=== PATIENT | female | born 1950 | race Caucasian/White ===

== ENCOUNTER 2017-05-01 19:32 | Emergency (ER) | payer MEDICARE, SELFPAY ==
[2017-05-01 19:37] VITALS: BP 172/106; PULSE 104; RESP 20; TEMP 36.9; O2SAT 98; BMI 30.7
--- NOTE | 2017-05-01 19:49 | XR_ITS ---
XR chest 2V HISTORY: ITS.REASON: COUGH ORDERING PHYSICIAN: Abran Freire MD PATIENT AGE: 66 years COMPARISON: 02/26/2017 FINDINGS: The cardiomediastinal silhouette and pulmonary vascularity are within normal limits. Atelectasis or fibrosis once again noted within the lingula unchanged. The remaining lungs are clear. There is chronic coarsening of the bronchovascular markings consistent with chronic bronchitis. A nodular opacity is noted in the right upper lobe at 7 mm not apparent on the previous exam. Postsurgical changes left shoulder. IMPRESSION: 1. No change atelectasis or fibrosis within the lingula. Previously described density in the right infrahilar region likely due to vascular overlap. 2. Coarsened bronchovascular markings consistent with obstructive chronic bronchitis/peribronchial inflammatory change. 3. 7 mm right upper lobe nodular opacity possibly due to summation density. Consider follow-up for confirmation.
[2017-05-01 20:10] LABS: Basophils # 0.1 K/mm3 (0-0.2); Basophils % 0.4 % (0.1-2.0); Eosinophils # 0.2 K/mm3 (0.0-0.4); Hematocrit 43.7 % (37.0-47.0); Hemoglobin 14.7 g/dL (12.2-16.2); Lymphocytes # 3.5 K/mm3 (0.7-4.5); Lymphocytes % 23.7 K/mm3 (10-50); Mean Corpuscular HGB Conc 33.6 g/dL (31.8-35.4); Mean Corpuscular Hemoglobin 30.2 pg (27.0-31.2); Mean Corpuscular Volume 89.9 fl (81-99); Mean Platelet Volume 8.4 fl (7.4-10.4); Monocytes # 0.6 K/mm3 (0.1-1.0); Monocytes % 3.9 % (1.7-9.3); Neutrophils # 10.4 K/mm3 (1.8-7.8); Platelet Count 273 K/mm3 (142-424); Red Blood Count 4.86 M/mm3 (4.20-5.40); Red Cell Distribution Width 13.8 % (11.5-17.5); White Blood Count 14.6 K/mm3 (4.8-10.8)
[2017-05-01 20:16] LABS: Microscopic, Urine URINE MICROSCOPIC (MICROSCOPIC)
[2017-05-01 20:18] LABS: Strep Scrn Group A (Rapid) Negative (Negative)
[2017-05-01 20:26] LABS: Alanine Aminotransferase 20 U/L (12-78); Albumin Level 3.8 gm/dL (3.4-5.0); Albumin/Globulin Ratio 1.1 (1.1-1.8); Alkaline Phosphatase 77 U/L (46-116); Anion Gap 11.3 mEq/L (5-15); Aspartate Amino Transferase 22 U/L (15-37); Bilirubin,Total 0.4 mg/dL (0.2-1.0); Blood Urea Nitrogen 14 mg/dL (7-18); Calcium 9.3 mg/dL (8.5-10.1); Carbon Dioxide 30 mmol/L (21.0-32.0); Chloride 101 mmol/L (98-107); Creatinine Clearance Estimated 73 mL/min (0-300); Creatinine,Serum 1.03 mg/dL (0.55-1.02); Estimated Glomerular Filt Rate 54 ml/min (>60); GFR (African American) 65 ML/MIN (>60); Globulin 3.5 gm/dl (1.3-3.2); Glucose 122 mg/dL (74-106); Potassium 3.3 mmoL/L (3.5-5.1); Sodium 139 mmol/L (136-145); Total Protein,Serum 7.3 gm/dL (6.4-8.2)
[2017-05-01 20:27] LABS: Appearance,Urine Clear (Clear); Color,Urine Yellow (Yellow); Glucose,Urine (UA) Negative (Negative); Ketones,Urine Negative (Negative); PH,Urine 7.5 (5.0-8.5); Protein,Urine Trace (Negative)
[2017-05-01 20:28] LABS: Bilirubin,Urine Negative (Negative); Blood, Urine 1+ (Negative); Leukocyte Esterase,Urine Trace (Negative); Nitrate,Urine Negative (Negative); Urobilinogen,Urine 0.2 EU/dl (0.2)
[2017-05-01 20:36] LABS: Bacteria,Urine 1+ /lpf; RBC,Urine Occasional #/hpf (0-3); Squamous Epithelial Cell,Urine 20-50 #/hpf (0-5); WBC,Urine 20-50 #/hpf (0-3)
--- NOTE | 2017-05-01 20:47 | HMH.EDHA ---
ED Disposition Clinical Impression: Headache Qualifiers: Headache type: unspecified Headache chronicity pattern: acute headache Intractability: intractable Qualified Code(s): R51 - Headache Disposition: Home, Self-Care Condition on Discharge: Good Instructions: DI for Headache Additional Instructions: call in am for follow up Referrals: Kedar Andujar MD [Primary Care Provider] - - Critical Care Critical Care Time: No Attestation: On 05/01/17, the high probability of a clinically significant, sudden or life threatening deterioration of the following system(s) required my full and direct attention, intervention and personal management. The time I documented below is in addition to time spent performing reported procedures but includes the following listed in this critical care notation. Medical Decision Making - Medical Records Medical records reviewed: Yes: I reviewed the patient's medical records. Vital Signs: 05/01/17 19:37 05/01/17 21:19 Temperature 98.5 F Temperature Source Oral Pulse Rate [Right Brachial] 104 H 86 Respiratory Rate 20 14 Blood Pressure [Right Arm] 172/106 154/96 Blood Pressure Mean [Right Arm] 128 115 Blood Pressure Source [Right Arm] Automatic Cuff Automatic Cuff Blood Pressure Position [Right Arm] Supine Sitting 02 Sat by Pulse Oximetry 98 99 Oxygen Delivery Method Room Air Room Air - Lab Data Lab results reviewed: Yes: I reviewed the patient's lab results. Lab Results 05/01/17 19:45: WBC 14.6 H, RBC 4.86, Hgb 14.7, Hct 43.7, MCV 89.9, MCH 30.2, MCHC 33.6, RDW 13.8, Plt Count 273, MPV 8.4, Neut % (Auto) 71.0, Lymph % (Auto) 23.7, [place] % (Auto) 3.9, Eos % (Auto) 1.0, Baso % (Auto) 0.4, Neut # (Auto) 10.4 H, Lymph # (Auto) 3.5, [place] # (Auto) 0.6, Eos # (Auto) 0.2, Baso # (Auto) 0.1 05/01/17 19:45: Sodium 139, Potassium 3.3 L, Chloride 101, Carbon Dioxide 30, Anion Gap 11.3, BUN 14, Creatinine 1.03 H, Estimated Creat Clear 73, Estimated GFR 54 L, Est GFR ( Amer) 65, Glucose 122 H, Calcium 9.3, Total Bilirubin 0.4, AST 22, ALT 20, Alkaline Phosphatase 77, Total Protein 7.3, Albumin 3.8, Globulin 3.5 H, Albumin/Globulin Ratio 1.1 05/01/17 19:45: Influenza Type A Ag Negative, Influenza Type B Ag Negative, Group A Strep Rapid Negative 05/01/17 20:07: Urine Color Yellow, Urine Appearance Clear, Urine pH 7.5, Ur Specific [place] 1.020, Urine Protein Trace, Urine Glucose (UA) Negative, Urine Ketones Negative, Urine Blood 1+, Urine Nitrate Negative, Urine Bilirubin Negative, Urine Urobilinogen 0.2, Ur Leukocyte Esterase Trace A, Urine RBC Occasional, Urine WBC 20-50, Ur Squamous Epith Cells 20-50, Urine Bacteria 1+ Result diagrams: 05/01/17 19:45 05/01/17 19:45 Orders (Tests/Meds): ED MEDICATIONS Discontinued Medications Generic Name Dose Route Start Last Admin Trade Name Enricoq PRN Reason Stop Dose Admin Ketorolac Tromethamine 15 mg 05/01/17 20:54 05/01/17 21:08 Toradol 30mg/Ml Vial IV 05/01/17 20:55 15 mg ONCE ONE Administration Lactated Ringer's 0 ml 05/01/17 20:15 05/01/17 20:17 Lactated Ringer's 1000 Ml Bag IV 05/01/17 20:16 1,000 ml BOLUS ONE Administration ORDERS Category Date Time Status CT head/brain wo con Stat Cat Scan 05/01/17 20:50 Taken XR chest 2V Stat Exams 05/01/17 19:49 Taken ESR [Erythrocyte Sedimentation Rate] Stat Lab 05/01/17 19:45 Received Strep Screen Confirmation Stat Micro 05/01/17 19:45 Received Urine Culture Stat Micro 05/01/17 20:07 Received - CT Data CT Scan: Head Time Received: 21:[address] Reviewed: Yes: I have viewed the radiologist's interpretation Preliminary Findings: Normal/NAD - Doni Inquiry Pt receiving controlled substance: No Headache HPI - General Chief Complaint: Nausea/Vomiting/Diarrhea Stated Complaint: MARTINEZ, Vomiting Time Seen by Provider: 05/01/17 20:47 Mode of Arrival: Family Vehicle Source of Information: Patient, Spouse, Medical Record Limitations: No Limitation
--- NOTE | 2017-05-01 20:50 | ED_ITS ---
ED Disposition Clinical Impression: Headache Qualifiers: Headache type: unspecified Headache chronicity pattern: acute headache Intractability: intractable Qualified Code(s): R51 - Headache Disposition: Home, Self-Care Condition on Discharge: Good Instructions: DI for Headache Additional Instructions: call in am for follow up Referrals: Kedar Andujar MD [Primary Care Provider] - - Critical Care Critical Care Time: No Attestation: On 05/01/17, the high probability of a clinically significant, sudden or life threatening deterioration of the following system(s) required my full and direct attention, intervention and personal management. The time I documented below is in addition to time spent performing reported procedures but includes the following listed in this critical care notation. Medical Decision Making - Medical Records Medical records reviewed: Yes: I reviewed the patient's medical records. Vital Signs: 05/01/17 19:37 05/01/17 21:19 Temperature 98.5 F Temperature Source Oral Pulse Rate [Right Brachial] 104 H 86 Respiratory Rate 20 14 Blood Pressure [Right Arm] 172/106 154/96 Blood Pressure Mean [Right Arm] 128 115 Blood Pressure Source [Right Arm] Automatic Cuff Automatic Cuff Blood Pressure Position [Right Arm] Supine Sitting 02 Sat by Pulse Oximetry 98 99 Oxygen Delivery Method Room Air Room Air - Lab Data Lab results reviewed: Yes: I reviewed the patient's lab results. Lab Results 05/01/17 19:45: WBC 14.6 H, RBC 4.86, Hgb 14.7, Hct 43.7, MCV 89.9, MCH 30.2, MCHC 33.6, RDW 13.8, Plt Count 273, MPV 8.4, Neut % (Auto) 71.0, Lymph % (Auto) 23.7, [place] % (Auto) 3.9, Eos % (Auto) 1.0, Baso % (Auto) 0.4, Neut # (Auto) 10.4 H, Lymph # (Auto) 3.5, [place] # (Auto) 0.6, Eos # (Auto) 0.2, Baso # (Auto) 0.1 05/01/17 19:45: Sodium 139, Potassium 3.3 L, Chloride 101, Carbon Dioxide 30, Anion Gap 11.3, BUN 14, Creatinine 1.03 H, Estimated Creat Clear 73, Estimated GFR 54 L, Est GFR ( Amer) 65, Glucose 122 H, Calcium 9.3, Total Bilirubin 0.4, AST 22, ALT 20, Alkaline Phosphatase 77, Total Protein 7.3, Albumin 3.8, Globulin 3.5 H, Albumin/Globulin Ratio 1.1 05/01/17 19:45: Influenza Type A Ag Negative, Influenza Type B Ag Negative, Group A Strep Rapid Negative 05/01/17 20:07: Urine Color Yellow, Urine Appearance Clear, Urine pH 7.5, Ur Specific [place] 1.020, Urine Protein Trace, Urine Glucose (UA) Negative, Urine Ketones Negative, Urine Blood 1+, Urine Nitrate Negative, Urine Bilirubin Negative, Urine Urobilinogen 0.2, Ur Leukocyte Esterase Trace A, Urine RBC Occasional, Urine WBC 20-50, Ur Squamous Epith Cells 20-50, Urine Bacteria 1+ Result diagrams: 05/01/17 19:45 05/01/17 19:45 Orders (Tests/Meds): ED MEDICATIONS Discontinued Medications Generic Name Dose Route Start Last Admin Trade Name Enricoq PRN Reason Stop Dose Admin Ketorolac Tromethamine 15 mg 05/01/17 20:54 05/01/17 21:08 Toradol 30mg/Ml Vial IV 05/01/17 20:55 15 mg ONCE ONE Administration Lactated Ringer's 0 ml 05/01/17 20:15 05/01/17 20:17 Lactated Ringer's 1000 Ml Bag IV 05/01/17 20:16 1,000 ml BOLUS ONE Administration ORDERS Category Date Time Status CT head/brain wo con Stat Cat Scan 05/01/17 20:50 Taken XR chest 2V Stat Exams 05/01/17 19:49 Taken ESR [Erythrocyte Sedimentation Rate] Stat Lab 05/01/17 19:45 Received
--- NOTE | 2017-05-01 20:50 | CT_ITS ---
CT head/brain wo con HISTORY: Severe headache, frontal headache ITS.REASON: C/O [id number] ORDERING PHYSICIAN: Abran Freire MD PATIENT AGE: 66 years COMPARISON: 05/01/2015 TECHNIQUE: Axial images obtained without contrast. Brain and bone windows reviewed. FINDINGS: No midline shift, mass effect, intracranial hemorrhage, hydrocephalus, or extra-axial fluid collection is evident. Hypoattenuation noted in the periventricular and subcortical region consistent with ischemic gliotic change from microvascular disease. The calvarium has an unremarkable appearance. No mastoid effusion. No sinus air-fluid levels.. IMPRESSION: 1. No acute finding. 2. Chronic ischemic gliotic changes.
[2017-05-01 21:19] VITALS: BP 154/96; PULSE 86; RESP 14; O2SAT 99
[2017-05-01 21:37] VITALS: BP 163/92; PULSE 101; RESP 18; TEMP 37.2; O2SAT 96
[2017-05-01 21:51] LABS: Erythrocyte Sedimentation Rate 18 mm/hr (0-30)
== END 2017-05-01 21:42 | disposition home or self-care (01) ==
PROVIDERS: Emergency Provider Emergency Medicine; PCP Internal Medicine Adolescent Medicine
DX: R51 Headache (principal); F17.210 Nicotine dependence, cigarettes, uncomplicated
CPT/HCPCS: 70450; 71046; 80053; 81001; 85025; 85651; 87086; 87275; 87276; 87430; 96365; 99284

== ENCOUNTER 2017-08-02 13:27 | Outpatient (RCR) | payer MEDICARE, SELFPAY ==
--- NOTE | 2017-08-02 14:13 | HMH.PTOPEV ---
Rehab Outpatient Evaluation Rehab OP Evaluation Start: 08/02/17 13:42 Freq: Status: Active Protocol: Document 08/02/17 13:42 [email or web address] (Rec: 08/02/17 14:13 BARBIE [id number]) Electronically Signed By Neo Mak PT 08/02/17 13:42 Outpatient Therapy Subjective History Subjective History Pt reports ~ 1 week ago she was lifting the couch to put the leg back on. Pt reports she had no pain during activity, but woke up the next morning. Pt reports the pain starts in anterior R chest and radiates around to R shoulder blade. Pt reports MD gave her Tylenol 3 and it is helping. Pt reports overall improvement and less pain. Pt reports intermittant pain in R shoulder and Posterior R Thigh in passing. Chief Complaint Pain Symptom Type Ache Dull Symptoms Relieved By Heat Prescription Meds Prior Functional Limitations None Current Functional Limitations None Symptom Description Intermittent Activity Dependent Level of pain today (0-10) 0 Pain scale - at its best (0-10) 0 Pain scale - at its worst (0-10) 9 Shoulder/Elbow Eval Shoulder Objective Measurements Palpation Tenderness tenderness shoulder exam standard right tenderness over the bicipital tendon right shoulder exam standard Shoulder Palpation Findings Tenderness Shoulder Palpation Overall Comment TTP3/4 at R ant RTC Posture Shoulder Posture Sitting Position (L) Rounded (R) Rounded Shoulder ROM Bilateral pain with active ROM shoulder exam right standard full ROM shoulder exam standard bilateral Shoulder MMT Anterior Deltoid Strength Grade 4 Good Shoulder Abduction Strength Grade 4 Good Shoulder Extension Strength Grade 4 Good Shoulder Flexion Strength Grade 4 Good Subscapularis Muscle Grade 4- Good- Elbow Objective Measurements Lumbopelvic Eval Range of Motion Lumbar Spine ROM Reason Not Measured Within Functional Limits Special Tests Lumbar Spine Screen Positive Lumbar Spine Spring Test C/O pain w/ P/A spring Sacroiliac Joint Compression Test Positive Right Outpatient Therapy Assessment Impairments Problems/Impairmments Palpation Tenderness Impaired Strength Impaire
== END 2017-08-02 13:28 | disposition home or self-care (01) ==
LOC: PT 13:27
PROVIDERS: PCP Internal Medicine Adolescent Medicine; Visit Provider Internal Medicine Adolescent Medicine
DX: M51.36 Other intervertebral disc degeneration, lumbar region (principal); M25.511 Pain in right shoulder; M25.551 Pain in right hip
CPT/HCPCS: 97163